=== PATIENT | female | born 1945 | race Caucasian/White ===

== ENCOUNTER 2017-06-11 07:43 | Emergency (ER) | payer MEDICARE, BC ==
[~2017-06-11] VITALS: Ht 162.6 cm; Wt 87.0 kg
[~2017-06-11 07:43] MED LIST: BACT800T5 PO; HYDR12.56 PO; MOBI15TA PO; PROT40TA PO
[2017-06-11 07:47] VITALS: BP 207/88; PULSE 73; RESP 16; TEMP 99.1; O2SAT 96
[2017-06-11] MEDS ORDERED: HYDR12.57 PO (08:04)
[2017-06-11 08:06] LABS: BLOOD, URINE TRACE (NEG); GLUCOSE,URINE NEG (NEG); KETONE, URINE NEG (NEG); NITRITE,URINE POS (NEG); PH, URINE 6.5 (5.0-8.5)
[2017-06-11 08:16] LABS: METHOD OF COLLECTION VOIDED; URINE COLOR STRAW (YELLW/STRAW); WBC, URINE 15-19 /hpf (0-5)
[2017-06-11 08:17] LABS: BACTERIA, URINE MANY /hpf; COMMENT (UR) CULTURE INDICATED; CULTURE IF INDICATED CULTURE INDICATED
--- NOTE | 2017-06-11 08:22 | PD ---
HPI Chief Complaint: Flank/Kidney Pain Time Seen by Provider: 08:11 Travel History International Travel<30 days: No Contact w/Intl Traveler<30days: No Traveled to known affect area: No History of Present Illness HPI 72-year-old female with history of UTI, hypertension, presents to the ER today for right sided flank pain that began yesterday on its own, currently measuring a 6 out of 10. She denies any fevers, nausea, vomiting, urinary symptoms, or any other issues. She states that she had the same symptoms last time she had a UTI. Modifying Factors: None Associated Signs & Symptoms: Right flank pain Risk Factors: UTI history PFSH Past Medical History Diminished Hearing: No Hypertension: Yes Influenza Vaccination: No ?: Not Social History Alcohol Use: Yes (SOCIAL ) Tobacco Use: No Substance Use: No Allergies-Medications (Allergen,Severity, Reaction): Coded Allergies: amoxicillin (Unverified Allergy, Mild, 06/11/17) CAUSED C-DIFF PER PT clavulanic acid (Unverified Allergy, Mild, 06/11/17) CAUSED C-DIFF PER PT Reported Meds & Prescriptions Reported Meds & Active Scripts Active Reported Hydrochlorothiazide 12.5 Mg Cap 12.5 Mg PO DAILY Review of Systems Except as stated in HPI: all other systems reviewed are Neg Physical Exam Narrative GENERAL: Well-developed elderly white female patient currently in mild distress. Awake and oriented 3. SKIN: Focused skin assessment warm/dry. HEAD: Atraumatic. Normocephalic. EYES: Pupils equal and round. No scleral icterus. No injection or drainage. ENT: No nasal bleeding or discharge. Mucous membranes pink and moist. NECK: Trachea midline. No JVD. CARDIOVASCULAR: Regular rate and rhythm. No murmur appreciated. RESPIRATORY: No accessory muscle use. Clear to auscultation. Breath sounds equal bilaterally. GASTROINTESTINAL: Abdomen soft, non-tender, nondistended. Hepatic and splenic margins not palpable. BACK: No CVA tenderness. No rash. No point tenderness on palpation of the spine. MUSCULOSKELETAL: No obvious deformities. No clubbing. No cyanosis. No edema. NEUROLOGICAL: Awake and alert. No obvious cranial nerve deficits. Motor grossly within normal limits. Normal speech. PSYCHIATRIC: Appropriate mood and affect; insight and judgment normal. Data Data Last Documented VS Vital Signs Date Time Temp Pulse Resp B/P (MAP) Pulse Ox O2 Delivery O2 Flow Rate FiO2 06/11/17 07:47 99.1 73 16 207/88 (127) 96 Room Air Orders Orders Urinalysis - C+S If Indicated (06/11/17 07:54) Urine Culture (06/11/17 07:55) Tramadol (Ultram) (06/11/17 08:30) Labs Laboratory Tests Test 06/11/17 07:55 Urine Collection Type VOIDED Urine Color STRAW Urine Turbidity CLEAR Urine pH 6.5 Urine Specific [place] 1.015 Urine Protein TRACE mg/dL Urine Glucose (UA) NEG mg/dL Urine Ketones NEG mg/dL Urine Occult Blood TRACE Urine Nitrite POS Urine Bilirubin NEG Urine Leukocyte Esterase SMALL Urine WBC 15-19 /hpf Urine WBC Clumps FEW Urine Squamous Epithelial Cells 3-5 /hpf Urine Bacteria MANY /hpf Microscopic Urinalysis Comment CULTURE INDICATED MDM Medical Decision Making Medical Screen Exam Complete: Yes Emergency Medical Condition: Yes Medical Record Reviewed: Yes Differential Diagnosis right flank pain: Pyelonephritis/UTI versus renal colic versus musculoskeletal Narrative Course UA significant for UTI. At this point, my plan would be to treat her UTI and have her follow-up with primary care physician. Return for worsening in symptoms as needed. The plan has discussed with her and she states understanding. Diagnosis Primary Impression: UTI (urinary tract infection) Med/Other Pt SpecificInfo: Prescription(s) given Scripts Sulfamethoxazole-Trimethoprim (Bactrim DS) 800-160 Mg Tab 1 TAB PO BID for Infection, #14 TAB 0 Refills Prov: Kristin Malik MD 06/11/17 Disposition: 01 DISCHARGE HOME Condition: Stable Kristin Malik MD Jun 11, 2017 08:22
[2017-06-11] MEDS ORDERED: traMADol HCL 50 MG TAB PO ONE (08:30)
[2017-06-11] MEDS ORDERED: BACT800T5 PO (08:30)
[2017-06-11 08:43] VITALS: BP 184/88
== END 2017-06-11 08:43 | disposition home or self-care (01) ==
LOC: PHED 07:43
DX: N39.0 Urinary tract infection, site not specified (principal); B96.20 Unspecified Escherichia coli [E. coli] as the cause of diseases classified elsewhere; I10 Essential (primary) hypertension; Z87.440 Personal history of urinary (tract) infections
CPT/HCPCS: 81001; 87077; 87086; 87186; 99283